=== PATIENT | male | born 1970 | race Caucasian/White ===

== ENCOUNTER 2017-02-13 15:07 | Emergency (ER) | payer MEDICAID ==
--- NOTE | 2017-02-17 13:19 | NUR ---
Received referral from ER saying pt is needing help to find a PCP who accepts Medicaid. Attempted to contact pt, no answer, voice mail message left.
--- NOTE | 2017-02-17 14:10 | NUR ---
Patient called back. States he was able to make an appt with Dr. Kent for tomorrow at [facility]. Deny any other needs or concerns at this time.
--- NOTE | 2017-02-21 18:56 | ER ---
ADMIT: 02/13/2017 RM/LOC: ER [facility] MR#: [id number] [address] [id number] [address] ENGEL [address] [place] [address] Emergency Room Report SEX: M AGE: 46 : 1970 DATE: 02/13/2017 ADDENDUM: This patient comes into the ER because he has chronic right arm pain. He got his arm caught in a machine and in the last 2 years has had 18 surgeries on his arm. He currently takes tramadol for pain. He recently has had to follow up with a physician here in [place], and he states he just recently had Medicaid, and he cannot find a provider that will accept his Medicaid, and he is no longer getting refills from the [facility]. He requests refill for tramadol. On physical exam, he does have a mangled, deformed right arm and has low tone, several scars. I did give him 2 tramadol in the ER, and I wrote a prescription for tramadol. I did have him set up with our manager social media to see if they can help him find a primary doctor, who will accept Medicaid in [place]. Please see my T-sheet. CHANDAN Cespedes / Olman Alicia MD / pedro JOB #: [id number] CC: Olman Alicia MD, Attending Physician Andre Kent MD, Family Physician
== END 2017-02-13 16:32 | disposition home or self-care (01) ==
LOC: ER 15:07
DX: M79.601 Pain in right arm (principal); G89.29 Other chronic pain